=== PATIENT | male | born 1990 | race Caucasian/White ===

== ENCOUNTER 2017-08-12 10:06 | Day surgery (SDC) | payer OTHER, SELFPAY ==
[2017-08-06 11:47] VITALS: BMI 24.4
[2017-08-12] VITALS (11 sets, daily range): BP systolic 116–129; BP diastolic 67–80; PULSE 68–111; RESP 10–17; TEMP 36.1–36.8; O2SAT 94–100; BMI 24.0
--- NOTE | 2017-08-12 07:25 | PM.PREOP ---
Pre-operative Note Interval Note Pre-op Check: History & Physical Reviewed by Physician
[2017-08-12] MEDS: LACTATED RINGERS 1,000 ML 42 ML IV ×2 (10:45→13:05)
[2017-08-12] MEDS: CEFAZOLIN 2 GM/100 ML FROZ.PIGGY IV (11:11)
[2017-08-12] MEDS: SODIUM CHLORIDE IRRIG SOLUTION 3,000 ML, EPINEPHrine 1 MG IRR (12:22)
[2017-08-12] MEDS: fentaNYL 100 MCG/2 ML INJ 50 MCG IV ×2 (14:36→14:42)
[2017-08-12] MEDS: HYDROMORPHONE 2 MG INJ 0.5 MG IV ×3 (14:38→14:52)
--- NOTE | 2017-08-12 14:42 | PM.OP.1 ---
Operative Date/Time/Diagnoses - Date of procedure: 08/12/17 Time of procedure: 11:43 Pre-op diagnosis: Left anterior cruciate ligament tear Post-op diagnosis: same Procedure & Clinicians Procedure: Left anterior cruciate ligament reconstruction with patellar tendon autograft Same procedure as scheduled: Yes Indications: 27-year-old male who sustained an isolated left ACL tear on the 27 of April. He did rehabilitation significantly to gain full range of motion and improve his quadriceps function prior to surgery. He reported instability with daily activities and inability to play cutting sports which he desires to do. The risks benefits and alternatives to the surgery were discussed with them the risks include pain bleeding infection lack of symptom relief need for further procedures implant complications graft complications stiffness arthrofibrosis and anesthesia complications. He signed a consent form. After discussion with him he opted for a patellar tendon autograft. Surgeon: Walt Berman Click Yes if Unassisted: Yes Anesthesia Type: General Operative Notes Findings: Examination under anesthesia: Range of motion is a few degrees of hyperextension to 140? of flexion. Adelso's was to be pivot-shift is abnormal anterior drawer is abnormal. Posterior drawer was normal. Dial was normal at 30 and 90?. He was stable to varus and valgus stress at 0 and 30?. Diagnostic arthroscopy Patellofemoral joint: No loose bodies. Patella cartilage intact. Trochlear cartilage intact. Gutters: No loose bodies Medial rebekah joint: medial meniscus intact. Medial tibial plateau intact. Medial femoral condyle intact. Lateral hemijoint: Lateral meniscus intact. Lateral tibial plateau intact. Lateral femoral condyle intact Notch: ACL torn with cyclops lesion. A portion of the ACL had scarred to the PCL. PCL was intact. Closure Type: primary Specimen(s): none sent Implants & Drains: Arthrex ACL bone patellar tendon bone tightrope Arthrex 9 x 25 mm titanium screw Estimated Blood Loss (mL): 25 Blood products transfused: none Tourniquet time (min): 120 Procedure in detail: The patient was met in the preoperative hold area the day of the surgery and the operative extremity was signed. Consent was verified. All questions were answered. He desired to proceed. He was brought to the operating room and surrendered anesthesia. Once general anesthesia been obtained he was placed in the supine position all bony prominences were well padded. An examination under anesthesia was performed and the findings can be found above. He was then prepped and draped in the standard sterile fashion. A surgical time-out was held and we confirm the patient identity procedure allergies antibiotics images all were in agreement we proceeded. An Esmarch was used to exsanguinate the limb and the tourniquet was elevated 250 mm of mercury. An incision was made just midline to center overlying the distal pole of the patella down to the tibial tubercle. Sharp dissection was brought down through the bursa into the paratenon. Full-thickness flaps were created with Metzenbaum scissors. I made a midline incision in the paratenon on and lifted from the patellar tendon. The patellar tendon measured 30 mm across and the central 10 mm were marked with a Bovie. A 25 mm block was measured off the patella and a 30 mm block was measured off of the tibia. I used a 2 mm drill and drilled 10 mm down into the patella and the tibial tubercle corners of the bone blocks. I then used a sagittal saw created a triangular shaped patellar bone block and trapezoidal tibial bone blocks. A curved osteotome was used to complete the harvest at the proximal and distal sites and the bone block was delivered from the wound. The fat pad was sharply excised off of the back of the tendon. The graft was brought to the back table and excess bone was removed. The patellar bone block measured 9.5 by 23 mm. The tibial bone block measured 10 by 30 mm. I then drilled 1 hole a to P on the leading edge of the patellar bone block and 2 holes in the tibial bone block. Passing sutures were placed into the tibial bone block and the BTB tight rope was placed through the patellar bone block. It was then wrapped in a moist gauze A standard diagnostic arthroscopy was then performed through the previously placed incision utilizing anterolateral and anteromedial portal sites. The findings of the diagnostic arthroscopy can be found above. I then utilized a sucker shaver and a radiofrequency ablation Wand to remove all remnant ACL tissue from the notch. I placed the camera into the medial portal and looked all the way back and found that I had cleared all tissue off the lateral wall. Satisfied with this the femoral guide was brought in through the lateral portal and placed to leave a 2 mm back wall. Satisfied with my position I then made an incision over the lateral distal femur and brought the bullet down through the ITB band incision to the lateral femoral wall. I then drilled a size 10 flip cutter into the joint and it entered into the guide centrally. The guide was then removed and the flip cutter was flipped and the lateral wall was scored. Satisfied with the position I then drilled a 25 mm tunnel. The flip cutter was brought back into the joint to remove all bone fragments and the sucker shaver was used to suck bone fragments from the joint. A suture was then passed down through the lateral femur and snaps to itself. I then brought in the tibial guide and measured the tibial tunnel length to be 45 mm. The tibial guide pin was placed in line with the posterior border of the anterior horn of the lateral meniscus, 7 mm anterior to the PCL, on the lateral aspect of the medial tibial eminence. I straightened the knee and found that the pin would not impinge on the notch. Satisfied with the positioning of the pin I then grabbed it with a Yesi, and drilled a 10 mm tunnel. Debris was again removed from the borders of the tunnels and from the joint in general. I then assessed the tibial tunnel on the anterior cortex of the tibia and removed soft tissue from its border. I then passed the sutures down through the tunnel. The graft was then brought to the operating table and the sutures were passed I then pulled the button out of the lateral wall and the skin. I grasped the femoral bone block within the notch and pushed it to be in line with the femoral tunnel I then passed it into the tunnel easily with the button still out of the skin. I then used a Josseline rake to retract the ITB band and advanced the button down to the lateral femoral wall visualizing it on the wall. Satisfied with its position I then placed a large bump under the distal femur and put a posterior drawer on the proximal tibia. I assessed that there was 1 cm of graft tunnel mismatch. I therefore used a Yesi and spun the tibial block counter-clockwise for 2 full rotations and found that it brought the graft tunnel mismatch down to 3 mm. Satisfied with this I placed the Nitinol wire and while pulling tension on the graft and applying a posterior drawer I placed a 9 mm x 25 mm tibial screw which had excellent purchase. I then performed examination found Adelso's to be normal 1A with a negative pivot shift. I then used a rongeur to trim the excess tibial bone block. I then irrigated the wounds copiously. I then pulled on the tight rope sutures again and tied a knot with 6 half hitches alternating posts. The sutures were then cut under the ITB band. All bone chips that had been removed when contouring the bone blocks were then placed into the patellar defect and this was covered with dBX putty. I then placed the ABX putty into the tibial defect as well. The paratenon was then closed with 0 Vicryl in a running fashion. 0 Vicryl was used in the fat layer. Two 0 Vicryl and the skin and a running Monocryl in the anterior incision. Nylon was placed in the lateral incision. Sterile dressings were then applied and a [id number] brace was placed. He was awakened and transferred to the recovery room. Complications: none Condition: stable Disposition: same day surgery Plan for aftercare: Brace locked in full extension for 2 weeks. Physical therapy can do range of motion, quad sets, and patellar mobility exercises. Brace will be unlocked but worn until 6 weeks. The physical therapy protocol will be followed closely. I anticipate running in a straight line at 4 months, dynamic activities at 6 months, and full competition and 9 months. These goals will be monitored and advanced by physical therapy.
[2017-08-12] MEDS: OXYCODONE/ACETAMINOPHEN 5/325 TABLET 1 TAB PO (15:03)
--- NOTE | 2017-08-12 15:30 | SUR.PHASEII ---
pt to opd from pacu at 1507, leg elevated , ice to surgical site , drowsy, at side
[2017-08-12] MEDS: ONDANSETRON 4 MG ODT PO (16:00)
--- NOTE | 2017-08-12 16:41 | SUR.PHASEII ---
pt co's of nausea. po med given at 1600,vss, leg elevated, ice to site , dressing DCI
--- NOTE | 2017-08-12 16:54 | SUR.PHASEII ---
pt states nausea is better and request to go home at 1620, patient dressed with assistance, transferred to w/c , dressing DCI, pain 04/10,
== END 2017-08-12 16:30 | disposition home or self-care (01) ==
PROVIDERS: Visit Provider Orthopaedic Surgery
PROC: (CPT 29888; principal; 2017-08-12 11:45)
PROC: (CPT 29870; 2017-08-12 11:45)
DX: S83.512A Sprain of anterior cruciate ligament of left knee, initial encounter (principal)
CPT/HCPCS: 29888; J0171; J0690; J1100; J1170; J2405; J2704; J3010

== ENCOUNTER 2018-03-05 08:14 | Emergency (ER) | payer OTHER, SELFPAY ==
[2018-03-05] VITALS (7 sets, daily range): BP systolic 106–132; BP diastolic 59–93; PULSE 76–112; RESP 15–20; TEMP 37.2; O2SAT 98–100; BMI 23.7
[2018-03-05] MEDS: ALBUTEROL 2.5 MG/3 ML NEB (ADULT) INH (08:32)
--- NOTE | 2018-03-05 09:24 | DI.RAD.S_ITS ---
PROCEDURE: XR CHEST 1V INDICATIONS: chest pain, hx dvt TECHNIQUE: One view of the chest was acquired. COMPARISON: None. FINDINGS: Surgical changes and devices: None. Lungs and pleura: No pleural effusions or pneumothorax. Lungs are clear. Mediastinum: Mediastinal contours appear normal. Heart size is normal. Bones and chest wall: No suspicious bony lesions. Overlying soft tissues appear unremarkable. IMPRESSION: No acute cardiopulmonary findings. Dictated by: Zarina Arreola M.D. on 03/05/2018 at 9:55 Approved by: Zarina Arreola M.D. on 03/05/2018 at 9:55
--- NOTE | 2018-03-05 09:26 | ED.SOB ---
HPI - SOB/Dyspnea General Chief Complaint: Shortness of Breath/Dyspnea Stated Complaint: states shortness of breath, pain with deep breathi Time Seen by Provider: 03/05/18 09:07 Source: patient Mode of arrival: ambulatory Limitations: no limitations History of Present Illness This is a 27-year-old male comes to the emergency department with complaint of chest pain is states it started yesterday. He was not doing anything particular came on kind of suddenly. Patient states that he has any fevers, no cold cough or congestion. He has felt a little short of breath but not regularly. He states that gets chest pain when he tries to go up stairs or exert himself. Patient states it has been constant since last night it has not gone away. Nothing else seems to make it worse or better other than exertion. Patient has not had any syncope. He denies any other medical history other than having a DVT after ACL repair in April. He states he did about 6 months of blood thinners but is no longer taking them. He denies any family history of clots, cardiac pulmonary history. Patient did have a vasectomy in the last couple weeks. 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 Related Data Home Medications Medication Instructions Recorded Confirmed propranolol 20 mg PO BID PRN 08/06/17 03/05/18 Allergies Allergy/AdvReac Type Severity Reaction Status Date / Time caffeine Allergy Unknown Hives Verified 03/05/18 08:36 Review of Systems Review of Systems All systems reviewed & are unremarkable except as noted in HPI and below Constitutional Denies chills, Denies fever(s), Denies lethargy and Denies weakness Cardiovascular Reports chest pain, Denies chest pain at rest, Reports chest pain with activity, Denies diaphoresis, Denies syncope, Denies rapid heart rate, Denies edema, Denies irregular heart rhythm, Denies lightheadedness, Reports palpitations (not fast, but bounding. ), Reports dyspnea and Denies orthopnea Respiratory Denies change in phlegm color, Denies chest congestion, Denies cough, Denies hemoptysis, Denies pain on inspiration, Reports dyspnea, Denies stridor and Denies wheezing Gastrointestinal Gastrointestinal: Denies abdominal pain, Denies change in bowel habits, Denies diarrhea, Denies nausea and Denies vomiting Genitourinary Denies difficulty urinating, Denies urinary frequency, Denies urinary hesitancy and Denies urinary urgency Neurologic Denies syncope and Denies weakness Endocrine Reports palpitations (not fast, but bounding. ) Allergic/Immunologic Denies wheezing [facility] Medical History DVT (deep venous thrombosis) (Acute) Migraines (Acute) Surgical History S/P ACL repair (Acute) No history of previous surgery (Acute) Social History household members: spouse and children Smoking Status: Never smoker alcohol intake: never Exam Narrative Exam Narrative: GENERAL: Alert and oriented x three, well-nourished, well-appearing male in mild distress. HEENT: Head normocephalic, atraumatic, EOMI, pupils reactive, face symmetric, moist mucous membranes NECK: Supple, full range of motion CARDIOVASCULAR: Mild tachycardia, regular rate and rhythm without murmurs, rubs or gallops. RESPIRATORY: Breath sounds equal bilaterally, no wheezes rales or rhonchi. ABDOMEN: Soft, nontender. Normoactive bowel sounds all 4 quadrants. No guarding or rebound, rigidity, no mass : No CVA tenderness EXTREMITIES: Normal range of motion, no clubbing or edema. Neurovascularly intact NEUROLOGICAL: Cranial nerves II through XII grossly intact. Moving all extremities SKIN: Warm, dry, no petechiae, no rashes or lesions. Initial Vital Signs Initial Vital Signs: Vital Signs Temperature 99.0 F 03/05/18 08:15 Pulse Rate 112 H 03/05/18 08:15 Respiratory Rate 20 03/05/18 08:15 Blood Pressure 132/74 03/05/18 08:15 Pulse Oximetry 99 03/05/18 08:15 Scores HEART Score Heart Score history: Moderately Suspicious Heart Score EKG: Normal Heart Score Age: < 45 years old Heart Score risk factors: No known risk factors Heart Score troponin: < or = to normal limit Heart Score Total: 1 Course Orders Ordered: Discontinued Medications Albuterol (Ventolin) 2.5 mg INH NOW ONE Stop: 03/05/18 08:32 Last Admin: 03/05/18 08:32 Dose: 2.5 mg Aspirin (Aspirin Chew) 324 mg PO NOW ONE Stop: 03/05/18 09:25 Last Admin: 03/05/18 09:45 Dose: 324 mg Nitroglycerin (Nitrostat) 0.4 mg SL [id number] PRN PRN Reason: Chest Pain Last Admin: 03/05/18 09:47 Dose: 0.4 mg Vital Signs - 8 hr 03/05/18 11:19 Pulse Rate 91 H Respiratory Rate 18 Blood Pressure 106/59 L Pulse Oximetry 98 MDM - SOB/Dyspnea Lab Data Attestation: I reviewed the patient's lab results. Result diagrams: 03/05/18 09:35 03/05/18 09:35 Lab Results 03/05/18 03/05/18 03/05/18 Range/Units 09:35 09:35 09:35 WBC 6.4 (4.5-11.0) X10^3/uL RBC 4.98 (4.5-5.9) X10^6/uL Hgb 15.5 (13.5-17.5) g/dL Hct 44.9 (41-53) % MCV 90.3 (80-100) fL MCH 31.1 (26-34) PG MCHC 34.5 (30-36) % RDW 13.2 (11.6-14.8) % Plt Count 164 (150-400) X10^3/uL Neut % (Auto) 68.1 (50-75) % Lymph % (Auto) 15.3 L (25-40) % [place] % (Auto) 15.9 H (3-14) % Eos % (Auto) 0.2 L (2-4) % Baso % (Auto) 0.5 (0-2) % Neut # (Auto) 4300 (6462-9274) /uL PT 15.1 H (10.1-12.7) SECONDS INR 1.3 (0.9-1.3) APTT 30 (26.4-36.2) SECONDS Sodium 140 (137-145) mmol/L Potassium 3.6 (3.4-5.1) mmol/L Chloride 103 (98-107) mmol/L Carbon Dioxide 26 (22-32) mmol/L BUN 13 (9-20) mg/dL Creatinine 0.90 (0.66-1.25) mg/dL Estimated GFR > 60.0 (>60) mL/min BUN/Creatinine Ratio 14.4 (6-22) Glucose 122 H (70-100) mg/dL Calcium 9.4 (8.4-10.2) mg/dL Total Bilirubin 0.6 (0.2-1.3) mg/dL AST 18 (17-59) IU/L ALT 21 (21-72) IU/L Alkaline Phosphatase 73 (38-126) U/L Total Creatine Kinase 52 L (55-170) U/L CK-MB (CK-2) TNP CK-MB (CK-2) Rel Index TNP Troponin I < 0.012 (0.01-0.034) ng/mL Total Protein 7.6 (6.3-8.2) g/dL Albumin 4.5 (3.5-5.0) g/dL Globulin 3.1 (1.7-4.1) g/dL Albumin/Globulin Ratio 1.5 (1.0-2.8) Lipase 36 (23-300) U/L Urine RBC (0-5/HPF) Urine WBC (0-5/HPF) Urine Bacteria (None) Ur Culture Indicated? Micro UA Comment 03/05/18 Range/Units 10:00 WBC (4.5-11.0) X10^3/uL RBC (4.5-5.9) X10^6/uL Hgb (13.5-17.5) g/dL Hct (41-53) % MCV (80-100) fL MCH (26-34) PG MCHC (30-36) % RDW (11.6-14.8) % Plt Count (150-400) X10^3/uL Neut % (Auto) (50-75) % Lymph % (Auto) (25-40) % [place] % (Auto) (3-14) % Eos % (Auto) (2-4) % Baso % (Auto) (0-2) % Neut # (Auto) (0742-5011) /uL PT (10.1-12.7) SECONDS INR (0.9-1.3) APTT (26.4-36.2) SECONDS Sodium (137-145) mmol/L Potassium (3.4-5.1) mmol/L Chloride (98-107) mmol/L Carbon Dioxide (22-32) mmol/L BUN (9-20) mg/dL Creatinine (0.66-1.25) mg/dL Estimated GFR (>60) mL/min BUN/Creatinine Ratio (6-22) Glucose (70-100) mg/dL Calcium (8.4-10.2) mg/dL Total Bilirubin (0.2-1.3) mg/dL AST (17-59) IU/L ALT (21-72) IU/L Alkaline Phosphatase (38-126) U/L Total Creatine Kinase (55-170) U/L CK-MB (CK-2) CK-MB (CK-2) Rel Index Troponin I (0.01-0.034) ng/mL Total Protein (6.3-8.2) g/dL Albumin (3.5-5.0) g/dL Globulin (1.7-4.1) g/dL Albumin/Globulin Ratio (1.0-2.8) Lipase (23-300) U/L Urine RBC None seen (0-5/HPF) Urine WBC None seen (0-5/HPF) Urine Bacteria None seen (None) Ur Culture Indicated? Not Reportable Micro UA Comment Not Reportable Urine Dip Bedside Urine Glucose Negative Bedside Urine Bilirubin - Negative Bedside Urine Ketone - Negative Urine Specific [place] 1.010 Bedside Urine Occult Blood +/- Bedside Urine pH 6.0 Bedside Urine Protein - Negative Bedside Urine Urobilinogen - Negative Bedside Urine Nitrite - Negative Bedside Urine Leukocytes - Negative Esterase Imaging Data CTA PE protocol: Radiologist's impression: [address] [address] [address] Scan Report Signed Patient: Miah Osorio MR#: [id number] : 1990 Acct:[id number] Age/Sex: 27 / M Date of Service: 03/05/18 Loc: ED Accession Number: [id number] Procedure: CT angio chest PE protocol Ordering Provider: Anat Gallegos D.O. PROCEDURE: CT ANGIO CHEST PE PROTOCOL INDICATIONS: chest pain, hx dvt TECHNIQUE: After the administration of intravenous contrast, 2 mm thick sections acquired from the pulmonary apices to the posterior costophrenic angles. 3-dimensional maximum intensity projection (MIP) coronal and sagittal reformats were then acquired through the thorax. For radiation dose reduction, the following was used: automated exposure control, adjustment of mA and/or kV according to patient size. COMPARISON: None. FINDINGS: Image quality: Excellent. Pulmonary arteries: Please note, there is suboptimal opacification of the pulmonary arteries for evaluation of the subsegmental branches. However, the pulmonary arteries are normal in size, and demonstrate there are no central intraluminal filling defects to suggest saddle embolus. Lungs and pleura: Lungs are clear. No pleural effusions or pneumothorax. Central and peripheral airways are patent. Mediastinum: Heart size is normal, without pericardial effusion. No mediastinal or hilar adenopathy. Thoracic aorta is normal in caliber and enhancement. Esophagus is normal in caliber, without hiatal hernia. Bones and chest wall: No suspicious bony lesions. Ribs and thoracic spine appear intact throughout. Thyroid gland is unremarkable. No axillary or supraclavicular adenopathy. Abdomen: Visualized upper abdominal solid organs appear normal in the early arterial phase of enhancement. IMPRESSION: 1. Suboptimal opacification of the pulmonary arteries; however no findings to suggest central or subsegmental embolus. Dictated by: Zarina Arreola M.D. on 03/05/2018 at 10:19 Approved by: Zarina Arreola M.D. on 03/05/2018 at 10:22 ECG Data Attestation: I personally reviewed and interpreted this ECG as follows: Interpretation: Sinus rhythm with a ventricular rate of 92 ER interval of 143 QRS of 88 and QTC of 379. No ST elevation or depression is appreciated. MDM Narrative Medical decision making narrative: This is a 27-year-old male comes to the emergency department with complaint of chest pain. It is worse with exertion. He does not have any cardiac history but is slightly tachycardic when he comes in. He does have history of a DVT that occurred after an ACL repair in April of 2017. He was on about 6 months of blood thinners but is no longer. He is not particularly short of breath but is having some occasionally. Discussed with patient I think it would be prudent to evaluate for pulmonary embolism as well as cardiac evaluation, he has no clear infectious causes. Patient's lab work shows no acute changes, patient's chest x-ray and CT are negative for pulmonary embolism, pneumonia or other intrathoracic causes of pain. Patient's EKG is normal and with 12 hr of chest pain my suspicion for acute coronary syndrome is much lower. Patient has not had any fevers, he does not have any other symptoms really consistent with pericarditis or EKG changes consistent with a pericarditis. I discussed with patient plan for follow-up with primary care in the next 48 hr. Asked to return if worsening symptoms. Discharge Plan Departure Patient Disposition: Home Clinical Impression: Chest pain Discharge Date/Time: 03/05/18 11:19 Interventions: ED Discharge Assessment Last Done: 03/05/18 11:19 Instructions: DI for Chest Pain Activity Restrictions/Additional Instructions: Follow up with primary care the next 48-72 hours for recheck and further evaluation. Your physician may discuss a possible stress test after further evaluation versus other testing. You may continue home medications as prescribed. Take an aspirin 81 mg once daily until cleared by her primary care. Return to the emergency department for worsening symptoms, passing out, increasing chest pain, shortness of breath, diaphoresis or sweatiness, nausea, swelling of her lower extremities or other new or concerning symptoms. Prescriptions: No Action propranolol 10 mg Tablet 20 mg PO BID PRN (Reason: Migraine Headache) RF: 0
--- NOTE | 2018-03-05 09:29 | ED_ITS ---
HPI - SOB/Dyspnea General Chief Complaint: Shortness of Breath/Dyspnea Stated Complaint: states shortness of breath, pain with deep breathi Time Seen by Provider: 03/05/18 09:07 Source: patient Mode of arrival: ambulatory Limitations: no limitations History of Present Illness This is a 27-year-old male comes to the emergency department with complaint of chest pain is states it started yesterday. He was not doing anything particular came on kind of suddenly. Patient states that he has any fevers, no cold cough or congestion. He has felt a little short of breath but not regularly. He states that gets chest pain when he tries to go up stairs or exert himself. Patient states it has been constant since last night it has not gone away. Nothing else seems to make it worse or better other than exertion. Patient has not had any syncope. He denies any other medical history other than having a DVT after ACL repair in April. He states he did about 6 months of blood thinners but is no longer taking them. He denies any family history of clots, cardiac pulmonary history. Patient did have a vasectomy in the last couple weeks. 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 Related Data Home Medications Medication Instructions Recorded Confirmed propranolol 20 mg PO BID PRN 08/06/17 03/05/18 Allergies Allergy/AdvReac Type Severity Reaction Status Date / Time caffeine Allergy Unknown Hives Verified 03/05/18 08:36 Review of Systems Review of Systems All systems reviewed & are unremarkable except as noted in HPI and below Constitutional Denies chills, Denies fever(s), Denies lethargy and Denies weakness Cardiovascular Reports chest pain, Denies chest pain at rest, Reports chest pain with activity , Denies diaphoresis, Denies syncope, Denies rapid heart rate, Denies edema, Denies irregular heart rhythm, Denies lightheadedness, Reports palpitations ( not fast, but bounding. ), Reports dyspnea and Denies orthopnea Respiratory Denies change in phlegm color, Denies chest congestion, Denies cough, Denies hemoptysis, Denies pain on inspiration, Reports dyspnea, Denies stridor and Denies wheezing Gastrointestinal Gastrointestinal: Denies abdominal pain, Denies change in bowel habits, Denies diarrhea, Denies nausea and Denies vomiting Genitourinary Denies difficulty urinating, Denies urinary frequency, Denies urinary hesitancy and Denies urinary urgency Neurologic Denies syncope and Denies weakness Endocrine Reports palpitations (not fast, but bounding. ) Allergic/Immunologic Denies wheezing FOR[facility]LY [facility] Medical History DVT (deep venous thrombosis) (Acute) Migraines (Acute) Surgical History S/P ACL repair (Acute) No history of previous surgery (Acute) Social History household members: spouse and children Smoking Status: Never smoker alcohol intake: never Exam Narrative Exam Narrative: GENERAL: Alert and oriented x three, well-nourished, well- appearing male in mild distress. HEENT: Head normocephalic, atraumatic, EOMI, pupils reactive, face symmetric, moist mucous membranes NECK: Supple, full range of motion CARDIOVASCULAR: Mild tachycardia, regular rate and rhythm without murmurs, rubs or gallops. RESPIRATORY: Breath sounds equal bilaterally, no wheezes rales or rhonchi. ABDOMEN: Soft, nontender. Normoactive bowel sounds all 4 quadrants. No guarding or rebound, rigidity, no mass : No CVA tenderness EXTREMITIES: Normal range of motion, no clubbing or edema. Neurovascularly intact NEUROLOGICAL: Cranial nerves II through XII grossly intact. Moving all extremities SKIN: Warm, dry, no petechiae, no rashes or lesions. Initial Vital Signs Initial Vital Signs: Vital Signs Temperature 99.0 F 03/05/18 08:15 Pulse Rate 112 H 03/05/18 08:15 Respiratory Rate 20 03/05/18 08:15 Blood Pressure 132/74 03/05/18 08:15 Pulse Oximetry 99 03/05/18 08:15 Scores HEART Score Heart Score history: Moderately Suspicious Heart Score EKG: Normal Heart Score Age: < 45 years old Heart Score risk factors: No known risk factors Heart Score troponin: < or = to normal limit Heart Score Total: 1 Course Orders Ordered: Discontinued Medications Albuterol (Ventolin) 2.5 mg INH NOW ONE Stop: 03/05/18 08:32 Last Admin: 03/05/18 08:32 Dose: 2.5 mg Aspirin (Aspirin Chew) 324 mg PO NOW ONE Stop: 03/05/18 09:25 Last Admin: 03/05/18 09:45 Dose: 324 mg Nitroglycerin (Nitrostat) 0.4 mg SL [id number] PRN PRN Reason: Chest Pain Last Admin: 03/05/18 09:47 Dose: 0.4 mg Vital Signs - 8 hr 03/05/18 11:19 Pulse Rate 91 H Respiratory Rate 18 Blood Pressure 106/59 L Pulse Oximetry 98 MDM - SOB/Dyspnea Lab Data Attestation: I reviewed the patient's lab results. Result diagrams: 03/05/18 09:35 03/05/18 09:35 Lab Results 03/05/18 03/05/18 03/05/18 Range/Units 09:35 09:35 09:35 WBC 6.4 (4.5-11.0) X10^3/uL RBC 4.98 (4.5-5.9) X10^6/uL Hgb 15.5 (13.5-17.5) g/dL Hct 44.9 (41-53) % MCV 90.3 (80-100) fL MCH 31.1 (26-34) PG MCHC 34.5 (30-36) % RDW 13.2 (11.6-14.8) % Plt Count 164 (150-400) X10^3/uL Neut % (Auto) 68.1 (50-75) % Lymph % (Auto) 15.3 L (25-40) % [place] % (Auto) 15.9 H (3-14) % Eos % (Auto) 0.2 L (2-4) % Baso % (Auto) 0.5 (0-2) % Neut # (Auto) 4300 (4111-5223) /uL PT 15.1 H (10.1-12.7) SECONDS INR 1.3 (0.9-1.3) APTT 30 (26.4-36.2) SECONDS Sodium 140 (137-145) mmol/L Potassium 3.6 (3.4-5.1) mmol/L Chloride 103 (98-107) mmol/L Carbon Dioxide 26 (22-32) mmol/L BUN 13 (9-20) mg/dL Creatinine 0.90 (0.66-1.25) mg/dL Estimated GFR > 60.0 (>60) mL/min BUN/Creatinine Ratio 14.4 (6-22) Glucose 122 H (70-100) mg/dL Calcium 9.4 (8.4-10.2) mg/dL Total Bilirubin 0.6 (0.2-1.3) mg/dL AST 18 (17-59) IU/L ALT 21 (21-72) IU/L Alkaline Phosphatase 73 (38-126) U/L Total Creatine Kinase 52 L (55-170) U/L CK-MB (CK-2) TNP CK-MB (CK-2) Rel Index TNP Troponin I < 0.012 (0.01-0.034) ng/mL Total Protein 7.6 (6.3-8.2) g/dL Albumin 4.5 (3.5-5.0) g/dL Globulin 3.1 (1.7-4.1) g/dL Albumin/Globulin Ratio 1.5 (1.0-2.8) Lipase 36 (23-300) U/L Urine RBC (0-5/HPF) Urine WBC (0-5/HPF) Urine Bacteria (None) Ur Culture Indicated? Micro UA Comment 03/05/18 Range/Units 10:00 WBC (4.5-11.0) X10^3/uL RBC (4.5-5.9) X10^6/uL Hgb (13.5-17.5) g/dL Hct (41-53) % MCV (80-100) fL MCH (26-34) PG MCHC (30-36) % RDW (11.6-14.8) % Plt Count (150-400) X10^3/uL Neut % (Auto) (50-75) % Lymph % (Auto) (25-40) % [place] % (Auto) (3-14) % Eos % (Auto) (2-4) % Baso % (Auto) (0-2) % Neut # (Auto) (7486-3684) /uL PT (10.1-12.7) SECONDS INR (0.9-1.3) APTT (26.4-36.2) SECONDS Sodium (137-145) mmol/L Potassium (3.4-5.1) mmol/L Chloride (98-107) mmol/L Carbon Dioxide (22-32) mmol/L BUN (9-20) mg/dL Creatinine (0.66-1.25) mg/dL Estimated GFR (>60) mL/min BUN/Creatinine Ratio (6-22) Glucose (70-100) mg/dL Calcium (8.4-10.2) mg/dL Total Bilirubin (0.2-1.3) mg/dL AST (17-59) IU/L ALT (21-72) IU/L Alkaline Phosphatase (38-126) U/L Total Creatine Kinase (55-170) U/L CK-MB (CK-2) CK-MB (CK-2) Rel Index Troponin I (0.01-0.034) ng/mL Total Protein (6.3-8.2) g/dL Albumin (3.5-5.0) g/dL Globulin (1.7-4.1) g/dL Albumin/Globulin Ratio (1.0-2.8) Lipase (23-300) U/L Urine RBC None seen (0-5/HPF) Urine WBC None seen (0-5/HPF) Urine Bacteria None seen (None) Ur Culture Indicated? Not Reportable Micro UA Comment Not Reportable Urine Dip Bedside Urine Glucose Negative Bedside Urine Bilirubin - Negative Bedside Urine Ketone - Negative Urine Specific [place] 1.010 Bedside Urine Occult Blood +/- Bedside Urine pH 6.0 Bedside Urine Protein - Negative Bedside Urine Urobilinogen - Negative Bedside Urine Nitrite - Negative Bedside Urine Leukocytes - Negative Esterase Imaging Data CTA PE protocol: Radiologist's impression: [address] [address] [address] Scan Report Signed Patient: Miah Osorio MR#: [id number] : 1990 Acct:[id number] Age/Sex: 27 / M Date of Service: 03/05/18 Loc: ED Accession Number: [id number] Procedure: CT angio chest PE protocol Ordering Provider: Anat Gallegos D.O. PROCEDURE: CT ANGIO CHEST PE PROTOCOL INDICATIONS: chest pain, hx dvt TECHNIQUE: After the administration of intravenous contrast, 2 mm thick sections acquired from the pulmonary apices to the posterior costophrenic angles. 3-dimensional maximum intensity projection (MIP) coronal and sagittal reformats were then acquired through the thorax. For radiation dose reduction, the following was used: automated exposure control, adjustment of mA and/or kV according to patient size. COMPARISON: None. FINDINGS: Image quality: Excellent. Pulmonary arteries: Please note, there is suboptimal opacification of the pulmonary arteries for evaluation of the subsegmental branches. However, the pulmonary arteries are normal in size, and demonstrate there are no central intraluminal filling defects to suggest saddle embolus. Lungs and pleura: Lungs are clear. No pleural effusions or pneumothorax. Central and peripheral airways are patent. Mediastinum: Heart size is normal, without pericardial effusion. No mediastinal or hilar adenopathy. Thoracic aorta is normal in caliber and enhancement. Esophagus is normal in caliber, without hiatal hernia. Bones and chest wall: No suspicious bony lesions. Ribs and thoracic spine appear intact throughout. Thyroid gland is unremarkable. No axillary or supraclavicular adenopathy. Abdomen: Visualized upper abdominal solid organs appear normal in the early arterial phase of enhancement. IMPRESSION: 1. Suboptimal opacification of the pulmonary arteries; however no findings to suggest central or subsegmental embolus. Dictated by: Zarina Arreola M.D. on 03/05/2018 at 10:19 Approved by: Zarina Arerola M.D. on 03/05/2018 at 10:22 ECG Data Attestation: I personally reviewed and interpreted this ECG as follows: Interpretation: Sinus rhythm with a ventricular rate of 92 ER interval of 143 QRS of 88 and QTC of 379. No ST elevation or depression is appreciated. MDM Narrative Medical decision making narrative: This is a 27-year-old male comes to the emergency department with complaint of chest pain. It is worse with exertion. He does not have any cardiac history but is slightly tachycardic when he comes in. He does have history of a DVT that occurred after an ACL repair in April of 2017. He was on about 6 months of blood thinners but is no longer. He is not particularly short of breath but is having some occasionally. Discussed with patient I think it would be prudent to evaluate for pulmonary embolism as well as cardiac evaluation, he has no clear infectious causes. Patient's lab work shows no acute changes, patient's chest x-ray and CT are negative for pulmonary embolism, pneumonia or other intrathoracic causes of pain. Patient's EKG is normal and with 12 hr of chest pain my suspicion for acute coronary syndrome is much lower. Patient has not had any fevers, he does not have any other symptoms really consistent with pericarditis or EKG changes consistent with a pericarditis. I discussed with patient plan for follow-up with primary care in the next 48 hr. Asked to return if worsening symptoms. Discharge Plan Departure Patient Disposition: Home Clinical Impression: Chest pain Discharge Date/Time: 03/05/18 11:19 Interventions: ED Discharge Assessment Last Done: 03/05/18 11:19 Instructions: DI for Chest Pain Activity Restrictions/Additional Instructions: Follow up with primary care the next 48-72 hours for recheck and further evaluation. Your physician may discuss a possible stress test after further evaluation versus other testing. You may continue home medications as prescribed. Take an aspirin 81 mg once daily until cleared by her primary care. Return to the emergency department for worsening symptoms, passing out, increasing chest pain, shortness of breath, diaphoresis or sweatiness, nausea, swelling of her lower extremities or other new or concerning symptoms. Prescriptions: No Action propranolol 10 mg Tablet 20 mg PO BID PRN (Reason: Migraine Headache) RF: 0
[2018-03-05 09:43] LABS: Add Manual Diff / Slide Review NO; Basophils Percent Auto 0.5 % (0-2); Eosinophils Percent Auto 0.2 % (2-4); Hematocrit 44.9 % (41-53); Hemoglobin 15.5 g/dL (13.5-17.5); Lymphocytes Percent Auto 15.3 % (25-40); Mean Corpuscular HGB Conc 34.5 % (30-36); Mean Corpuscular Hemoglobin 31.1 PG (26-34); Mean Corpuscular Volume 90.3 fL (80-100); Monocytes Percent Auto 15.9 % (3-14); Neutrophils Absolute Auto 4300 /uL (1500-7000); Neutrophils Percent Auto 68.1 % (50-75); Platelet Count 164 X10^3/uL (150-400); Red Blood Cell Count 4.98 X10^6/uL (4.5-5.9); Red Cell Distribution Width 13.2 % (11.6-14.8); White Blood Cell Count 6.4 X10^3/uL (4.5-11.0)
[2018-03-05] MEDS: ASPIRIN 81 MG TAB 324 MG PO (09:45)
[2018-03-05] MEDS: NITROGLYCERIN 0.4 MG SL TAB SL (09:47)
[2018-03-05 09:57] LABS: INR 1.3 (0.9-1.3); Prothrombin Time 15.1 SECONDS (10.1-12.7)
[2018-03-05 10:00] LABS: PTT Partial Thromboplastin Tim 30 SECONDS (26.4-36.2)
[2018-03-05 10:01] LABS: Alanine Aminotransferase 21 IU/L (21-72); Albumin 4.5 g/dL (3.5-5.0); Albumin Globulin Ratio 1.5 (1.0-2.8); Alkaline Phosphatase 73 U/L (38-126); Aspartate Aminotransferase 18 IU/L (17-59); BUN Creatinine Ratio 14.4 (6-22); Bilirubin Total 0.6 mg/dL (0.2-1.3); Blood Urea Nitrogen 13 mg/dL (9-20); Calcium 9.4 mg/dL (8.4-10.2); Carbon Dioxide 26 mmol/L (22-32); Chloride 103 mmol/L (98-107); Creatine Kinase 52 U/L (55-170); Estimated Glomerular Filt Rate > 60.0 mL/min (>60); Globulin 3.1 g/dL (1.7-4.1); Glucose 122 mg/dL (70-100); HEMOLYSIS < 15 (0-50); Lipase 36 U/L (23-300); Potassium 3.6 mmol/L (3.4-5.1); Sodium 140 mmol/L (137-145); Total Protein 7.6 g/dL (6.3-8.2)
[2018-03-05 10:15] LABS: Troponin I < 0.012 ng/mL (0.01-0.034)
[2018-03-05 11:07] LABS: Bacteria Urine None Seen; RBC Urine None Seen (0-5/HPF); WBC Urine None Seen (0-5/HPF)
== END 2018-03-05 11:19 | disposition home or self-care (01) ==
PROVIDERS: Emergency Provider Emergency Medicine
DX: R07.9 Chest pain, unspecified (principal)
CPT/HCPCS: 36591; 71045; 71275; 80053; 81003; 81015; 82550; 83690; 84484; 85025; 85610; 85730; 93005; 93041; 94640; 99283; 99285; J7613; Q9967

== ENCOUNTER 2018-07-31 21:04 | Emergency (ER) | payer OTHER, SELFPAY ==
[2018-07-31 21:13] VITALS: BP 113/72; PULSE 66; RESP 15; TEMP 36.6; O2SAT 100; BMI 23.7
--- NOTE | 2018-07-31 21:18 | DI.US.S_ITS ---
PROCEDURE: US SCROTUM INDICATIONS: TESTICULAR PAIN AND SWELLING, NO INJURY TECHNIQUE: Real-time scanning was performed of the scrotum and testicles, with image documentation. Color and pulse Doppler interrogation was performed of both testicles. COMPARISON: None. FINDINGS: Right: Testicle is normal in size at 4.7 x 2.3 x 3.3 cm, and homogenous in echotexture. Epididymis is normal in overall size and morphology. No hydrocele or varicoceles. Overlying scrotal skin is normal in thickness. Left: Testicle is normal in size at 4.7 x 1.9 x 3.1 cm, and homogeneous in echotexture. Epididymis is normal in overall size and morphology. Subcentimeter epididymal cyst. No hydrocele or varicoceles. Overlying scrotal skin is normal in thickness. Several scrotal wall calcifications are noted. Doppler: Color and pulse Doppler demonstrate normal and symmetric arterial flow in both testicles. IMPRESSION: 1. Normal testicles bilaterally. 2. Subcentimeter right epididymal cyst. 3. Left scrotal wall calcifications. Note: These findings are concordant with the preliminary interpretation. Dictated by: Alexander BURNS Interpreted: Dannie Larios MD on 08/01/2018 at 8:10 Approved by: Dannie Larios M.D. on 08/01/2018 at 14:46
--- NOTE | 2018-07-31 21:18 | ED.MALEGU ---
HPI - Male Genitourinary General Chief complaint: Urogenital-Male Stated complaint: testicular pain Time Seen by Provider: 07/31/18 21:08 Source: patient and family Mode of arrival: ambulatory Limitations: no limitations History of Present Illness HPI Narrative: 28-year-old male nonsmoker, otherwise healthy presents with his in the chief complaint of left testicular pain which has been present for many months. Patient states that he has had a palpable bump on the left testicle which he thinks is larger today and had been. He called the nursing hotline and was instructed to come to the emergency department. He denies any dysuria, frequency or urgency. He denies any injury. MD Complaint: testicle pain Onset (ago): month(s) Duration: intermittent Location: left testicle Severity: moderate Quality: aching Relieving factors: none Exacerbating factors: palpation and movement Reports denies other symptoms Related Data Sexually active: Yes Home Medications Medication Instructions Recorded Confirmed propranolol 20 mg PO BID PRN 08/06/17 03/05/18 Allergies Allergy/AdvReac Type Severity Reaction Status Date / Time caffeine Allergy Unknown Hives Verified 03/05/18 08:36 Review of Systems Constitutional Denies chills, Denies fever(s), Denies lethargy and Denies weakness Eyes Denies change in vision, Denies eye discharge, Denies irritation and Denies loss of vision ENT Ears, Nose, Mouth, and Throat: Denies change in voice, Denies neck pain and Denies sore throat Cardiovascular Denies chest pain, Denies irregular heart rhythm, Denies lightheadedness, Denies palpitations, Denies dyspnea, Denies dyspnea on exertion and Denies orthopnea Respiratory Denies cough, Denies dyspnea, Denies dyspnea on exertion and Denies wheezing Gastrointestinal Gastrointestinal: Denies abdominal pain, Denies change in bowel habits, Denies diarrhea, Denies nausea and Denies vomiting Genitourinary Denies hematuria, Denies flank pain, Reports testicular mass, Reports testicular pain, Denies urinary incontinence and Denies urinary urgency Musculoskeletal Denies neck pain Integumentary/Breasts Denies pruritus, Denies erythema, Denies rash and Denies wounds Neurologic Denies confusion, Denies loss of vision and Denies weakness Psychiatric Denies anxiety, Denies confusion, Denies depression, Denies homicidal ideation and Denies suicidal ideation Endocrine Denies palpitations Hematologic/Lymphatic Denies easy bruising Allergic/Immunologic Denies wheezing PFSH Medical History DVT (deep venous thrombosis) (Acute) Migraines (Acute) Surgical History No history of previous surgery (Acute) S/P ACL repair (Acute) Social History household members: spouse and children Smoking Status: Never smoker alcohol intake: never Social History household members: spouse and children Smoking Status: Never smoker alcohol intake: never Exam Narrative Exam Narrative: GEN: AOx3 and in mild distress EYES: Pupils are equal, round, and reactive to light and accommodation. Extraoccular muscles are intact bilaterally. There is no subconjunctival hemorrhage or exudate. CHEST: Lungs are clear to auscultation bilaterally and free of wheezes, rales, or rhonchi. Heart rate is regular rhythm, there are no murmurs, clicks, rubs, or gallops. There is no chest wall tenderness. ABD: Abdomen is soft and nontender. There is no guarding or rebound. Bowel sounds are normal in all 4 quadrants. There is no mass or organomegaly. : L testicle painful to palp, small mass on L testicle palpated, which is tender. No swelling, erythema or warmth. No discoloration. No evidence of inguinal hernia. Examined in standing position EXT: Full painless ROM of all extremities with no loss of sensation or strength. SKIN: Warm, pink, and dry. No erythema or rash Initial Vital Signs Initial Vital Signs: Vital Signs Temperature 97.8 F 07/31/18 21:13 Pulse Rate 66 07/31/18 21:13 Respiratory Rate 15 07/31/18 21:13 Blood Pressure 113/72 07/31/18 21:13 Pulse Oximetry 100 07/31/18 21:13 Course Orders Ordered: ED Orders 07/31/18 21:18 US scrotum Stat Discontinued Medications Hydrocodone Bitart/Acetaminophen (Vicodin Prepack) 1 bottle MISC SEEINSTR ONE Stop: 07/31/18 23:02 Last Admin: 07/31/18 23:17 Dose: 1 bottle Vital Signs - 8 hr 07/31/18 21:13 Temperature 97.8 F Pulse Rate 66 Respiratory Rate 15 Blood Pressure 113/72 Pulse Oximetry 100 MDM - Male Genitourinary Lab Data Urine Dip Bedside Urine Glucose Negative Bedside Urine Bilirubin - Negative Bedside Urine Ketone - Negative Urine Specific [place] 1.030 Bedside Urine Occult Blood - Negative Bedside Urine pH 6.0 Bedside Urine Protein - Negative Bedside Urine Urobilinogen - Negative Bedside Urine Nitrite - Negative Bedside Urine Leukocytes - Negative Esterase Imaging Data Testicular US: Radiologist's impression: NO acute findings. No torsion MDM Narrative Medical decision making narrative: Multiple etiologies for patient's symptoms considered including: [torsion vs. Epididymitis versus other] Patient's symptoms improved or duration of stay with above-stated therapies. Findings and discharge diagnosis discussed with patient/family followed by verbalization of understanding Return precautions discussed with patient/family whom verbalize understanding. Discharge Plan Departure Patient Disposition: Home Clinical Impression: Left testicular pain Discharge Date/Time: 07/31/18 23:20 Interventions: ED Discharge Assessment Last Done: 07/31/18 23:20 Instructions: DI for Testicular Pain Activity Restrictions/Additional Instructions: *You have been diagnosed with [acute testicular pain] *What to do: *Take medications as directed *Follow up with your primary care provider in 2-3 days, call for an appointment. Let them know you were seen in the Emergency Department and that we ask that you be seen in follow up *Return to ER if you should have any new, worsening or concerning symptoms Prescriptions: No Action propranolol 10 mg Tablet 20 mg PO BID PRN (Reason: Migraine Headache) RF: 0 Referrals: Ludivina Denis MD [Non-Staff] -
[2018-07-31] MEDS: HYDROCODONE/ACET 5/325 PREPACK 1 BOTTLE MISC (23:17)
== END 2018-07-31 23:20 | disposition home or self-care (01) ==
PROVIDERS: Emergency Provider Emergency Medicine
DX: N50.812 Left testicular pain (principal)
CPT/HCPCS: 76870; 81003; 99282; 99283

== ENCOUNTER 2020-01-19 04:45 | Emergency (ER) | payer OTHER, SELFPAY ==
[2020-01-19] VITALS (13 sets, daily range): BP systolic 109–126; BP diastolic 58–70; PULSE 56–64; RESP 11–17; TEMP 37.2; O2SAT 97–100; BMI 23.7
--- NOTE | 2020-01-19 04:55 | DI.CT.S_ITS ---
PROCEDURE: CT HEAD/BRAIN WO CON INDICATIONS: Stroke vs. seizure, loss of recall, confusion TECHNIQUE: Noncontrast 4.5 mm thick angled axial sections acquired from the foramen magnum to the vertex, with coronal and sagittal reformats. For radiation dose reduction, the following was used: automated exposure control, adjustment of mA and/or kV according to patient size. COMPARISON: None. FINDINGS: Image quality: Excellent. CSF spaces: Basal cisterns are patent. No extra-axial fluid collections. Ventricles are normal in size and shape. Brain: No midline shift. No intracranial masses or hemorrhage. Nicohls-white matter interface is normal. Skull and face: Calvarium and visualized facial bones are intact, without suspicious lesions. Sinuses: Visualized sinuses and mastoids are clear. IMPRESSION: No acute intracranial disease process. Dictated by: Yudelka Carreon MD, PhD on 01/19/2020 at 7:13 Approved by: Yudelka Carreon MD, PhD on 01/19/2020 at 7:13
--- NOTE | 2020-01-19 04:55 | DI.CT.S_ITS ---
PROCEDURE: CT CERVICAL SPINE WO CON INDICATIONS: Stroke vs. seizure, now has midline neck pain after fall TECHNIQUE: Noncontrast 3 mm thick sections acquired from the skull base to the T4 level. Sagittal and coronal reformats were then constructed. For radiation dose reduction, the following was used: automated exposure control, adjustment of mA and/or kV according to patient size. COMPARISON: None. FINDINGS: Image quality: Excellent. Bones: No fractures or dislocations. Visualized superior ribs are intact. Soft tissues: Prevertebral soft tissues are normal in thickness. No paravertebral hematomas. No apical pneumothoraces. IMPRESSION: No fracture. No acute osseous lesion. If symptoms and/or clinical suspicion for pathology persists, evaluation with MRI may be helpful for further assessment. Dictated by: Yudelka Carreon MD, PhD on 01/19/2020 at 7:32 Approved by: Yudelka Carreon MD, PhD on 01/19/2020 at 7:34
[2020-01-19] MEDS: ONDANSETRON 4 MG/2 ML INJ IV (05:04)
[2020-01-19] MEDS: SODIUM CHLORIDE 0.9% 1,000 ML 1000 ML IV (05:04)
--- NOTE | 2020-01-19 05:04 | PC.NURSE ---
Pt states that he has started to feel weak on his R side. When roll grinder and foot strength assessed he did have a noticeable weakness on his R side. informed. Taking pt to CT
[2020-01-19 05:14] LABS: Add Manual Diff / Slide Review NO; Basophils Absolute Auto 100 /uL (0-100); Basophils Percent Auto 1.1 % (0-2); Eosinophils Absolute Auto 100 /uL (0-450); Eosinophils Percent Auto 2.4 % (2-4); Hematocrit 46.1 % (41-53); Lymphocytes Absolute Auto 1500 /uL (1100-4500); Lymphocytes Percent Auto 28.6 % (25-40); Mean Corpuscular HGB Conc 34.7 % (30-36); Mean Corpuscular Hemoglobin 31.2 PG (26-34); Mean Corpuscular Volume 89.9 fL (80-100); Monocytes Absolute Auto 600 /uL (0-900); Monocytes Percent Auto 11.2 % (3-14); Neutrophils Absolute Auto 2900 /uL (1500-7000); Neutrophils Percent Auto 56.7 % (50-75); Platelet Count 231 X10^3/uL (150-400); Red Blood Cell Count 5.13 X10^6/uL (4.5-5.9); Red Cell Distribution Width 12.8 % (11.6-14.8); White Blood Cell Count 5.1 X10^3/uL (4.5-11.0)
--- NOTE | 2020-01-19 05:15 | DI.CT.S_ITS ---
PROCEDURE: CT ANGIO HEAD AND NECK INDICATIONS: Stroke,altered mental status , fall, right arm weakness TECHNIQUE: Pre-contrast 4.5 mm thick sections acquired from the foramen magnum to the vertex. After the administration of intravenous contrast, 1 mm thick sections acquired from the aortic arch through the [place]. Post-contrast 4.5 mm thick sections then re-acquired from the foramen magnum to the vertex. 3-dimensional [id number]-[id number] (MIP) and/or volume rendering reformats were acquired of the central intracranial vasculature and neck separately. COMPARISON: [facility], CT, CT HEAD/BRAIN WO CON, 01/19/2020, 5:00. FINDINGS: Image quality: Excellent. BRAIN: CSF spaces: Ventricles are normal in size and shape. Basal cisterns are patent. No extra-axial fluid collections. Brain: No midline shift. No intracranial bleeds or masses. Nichols-white matter interface appears intact. Skull and face: Calvarium and facial bones appear intact, without suspicious lesions. Orbits appear normal. Sinuses: Small mucous retention cysts noted in the maxillary sinuses bilaterally. The mastoids are clear. HEAD CT ANGIOGRAPHY: Anterior circulation: Intracranial internal carotid arteries are normal in size and flow. The flow within the paired anterior cerebral arteries is normal and symmetric. The flow within the middle cerebral arteries is normal and symmetric. The anterior communicating artery is seen. No aneurysms are seen. Posterior circulation: Visualized portions of the vertebral arteries demonstrate normal caliber, and join to form a normal appearing basilar artery. Flow within the posterior cerebral arteries is normal and symmetric. No aneurysms are seen. Dural sinuses demonstrate normal postcontrast enhancement. NECK CT ANGIOGRAPHY: Carotid system: The great vessels demonstrate a conventional anatomy as they arise from the aortic arch. The origins of the common carotid arteries appear patent. The common carotid arteries demonstrate normal caliber and courses. The bifurcation regions are both widely patent. The internal carotid arteries demonstrate normal calibers and courses. Posterior circulation: The origins of the vertebral arteries both appear widely patent. The more superior extracranial portions of both vertebral arteries also demonstrate normal courses and calibers. They join to form a normal appearing basilar artery. Soft tissues: Visualized neck soft tissues demonstrate no suspicious abnormalities. Bones: No suspicious bony lesions. Visualized cervical spine appears normally aligned. IMPRESSION: 1. No acute intracranial disease process. 2. No large vessel occlusion, vascular stenosis, vascular dissection or aneurysm. Any quantitative measurements of stenosis were performed using NASCET criteria. Dictated by: Yudelka Carreon MD, PhD on 01/19/2020 at 7:35 Approved by: Yudelka Carreon MD, PhD on 01/19/2020 at 7:41
[2020-01-19 05:24] LABS: Alanine Aminotransferase 18 IU/L (<50); Albumin 4.4 g/dL (3.5-5.0); Albumin Globulin Ratio 1.3 (1.0-2.8); Alkaline Phosphatase 76 U/L (38-126); Aspartate Aminotransferase 21 IU/L (17-59); BUN Creatinine Ratio 15.8 (6-22); Bilirubin Total 1.3 mg/dL (0.2-1.3); Blood Urea Nitrogen 15 mg/dL (9-20); Calcium 9.6 mg/dL (8.4-10.2); Carbon Dioxide 25 mmol/L (22-32); Chloride 105 mmol/L (98-107); Estimated Glomerular Filt Rate > 60.0 mL/min (>60); Globulin 3.4 g/dL (1.7-4.1); Glucose 107 mg/dL (70-100); HEMOLYSIS 15 (0-50); Magnesium 2.1 mg/dL (1.6-2.3); Potassium 3.6 mmol/L (3.4-5.1); Sodium 136 mmol/L (137-145); Total Protein 7.8 g/dL (6.3-8.2)
[2020-01-19 05:53] LABS: Prolactin 18.3 ng/mL (3.7-17.9)
--- NOTE | 2020-01-19 06:12 | ED.FALL ---
HPI - Fall <Miles Stout DO - Last Filed: 01/19/20 17:54> General Chief Complaint: Fall Stated Complaint: Amnesia and incontinence Time Seen by Provider: 01/19/20 04:45 Source: patient, family and EMS Mode of arrival: EMS Limitations: no limitations History of Present Illness HPI Narrative: 29-year-old nonsmoking male with history of traumatic brain injury presents with a chief complaint of some headache, confusion, lack of recall of events this morning and neck pain. Patient went to bed in his normal state of health. He do admittedly has been working longer hours and is under increased stress at work. His was sleeping and their daughter's room and heard him calling out for her this morning, she found him in the doorjamb of the room stating that he did know what had happened and found himself on the floor next to the bed. He had lost control of his bladder. MD complaint: other Onset (ago): minute(s) Fall from: out of bed Fall witnessed: no Place fall occurred: home Loss of consciousness: unsure Prolonged down time: no Symptoms prior to fall: none Location of injury: neck Severity: moderate Associated symptoms (after fall): neck pain, lightheaded and confusion Related Data Home Medications Medication Instructions Recorded Confirmed propranolol 20 mg PO BID PRN 08/06/17 03/05/18 Allergies Allergy/AdvReac Type Severity Reaction Status Date / Time caffeine Allergy Unknown Hives Verified 03/05/18 08:36 Review of Systems <Miles Stout DO - Last Filed: 01/19/20 17:54> Constitutional Constitutional: Denies chills, Denies fatigue, Denies fever(s), Denies frequent falls, Denies lethargy and Denies weakness Eyes Eyes: Denies change in vision, Denies eye discharge, Denies irritation and Denies loss of vision ENT Ears, Nose, Mouth, and Throat: Denies change in voice, Reports dizziness, Denies neck pain, Denies sore throat and Denies throat swelling Cardiovascular Cardiovascular: Denies chest pain, Denies irregular heart rhythm, Denies lightheadedness, Denies palpitations, Denies dyspnea, Denies dyspnea on exertion and Denies orthopnea Respiratory Respiratory: Denies cough, Denies dyspnea, Denies dyspnea on exertion and Denies wheezing Gastrointestinal Gastrointestinal: Denies abdominal pain, Denies change in bowel habits, Denies diarrhea, Denies nausea and Denies vomiting Musculoskeletal Musculoskeletal: Denies neck pain and Denies numbness Integumentary/Breasts Skin/Breast: Denies pruritus, Denies erythema, Denies rash and Denies wounds Neurologic Neurologic: Denies behavioral changes, Reports confusion, Reports dizziness, Denies frequent falls, Denies loss of vision, Denies numbness and Denies weakness Psychiatric Psychiatric: Denies anxiety, Denies behavioral changes, Reports confusion, Denies depression, Denies homicidal ideation and Denies suicidal ideation Endocrine Endocrine: Denies fatigue, Denies flushing and Denies palpitations Hematologic/Lymphatic Hematologic/Lymphatic: Denies easy bruising Allergic/Immunologic Allergic/Immunologic: Denies urticaria, Denies throat swelling and Denies wheezing Patient History <Miles Stout DO - Last Filed: 01/19/20 17:54> Medical History (Updated 01/19/20 @ 11:28 by Erinn Betancourt DO) DVT (deep venous thrombosis) Migraines Surgical History No history of previous surgery S/P ACL repair Social History household members: spouse and children Smoking Status: Never smoker alcohol intake: never Smoking Status: Never smoker alcohol intake frequency: holidays/special occasions only Substance Use Type: does not use Exam <Miles Stout DO - Last Filed: 01/19/20 17:54> Narrative Exam Narrative: GENERAL: [ 29] year old patient appears stated age. Well-nourished, well-developed patient, in mild distress. Presents by EMS, in C-spine precautions with collar and on a backboard HEAD: Atraumatic. Normocephalic. EYES: Pupils equal round and reactive. Extraocular motions intact. No scleral icterus. No injection or drainage. ENT: Nose without bleeding, purulent drainage. Throat without erythema, tonsillar hypertrophy or exudate. Airway patent. NECK: Trachea midline. Non tender, C-collar in place, complains of tenderness CARDIOVASCULAR: Regular rate and rhythm without murmurs, gallops, or rubs. RESPIRATORY: Clear to auscultation. Breath sounds equal bilaterally. No wheezes, rales, or rhonchi. GASTROINTESTINAL: Abdomen soft, non-tender, nondistended. EXTREMITIES: No edema or joint tenderness. BACK: Nontender without deformity or crepitance. No flank tenderness. NEURO: AOx3. GCS 15 SKIN: No rash or erythema of visible areas Initial Vital Signs Initial Vital Signs: Vital Signs Temperature 99 F 01/19/20 04:25 Pulse Rate 64 01/19/20 04:25 Respiratory Rate 17 01/19/20 04:25 Blood Pressure 126/70 01/19/20 04:25 Pulse Oximetry 100 01/19/20 04:25 <Erinn Betancourt, DO - Last Filed: 01/19/20 12:32> Initial Vital Signs Initial Vital Signs: Vital Signs Temperature 99 F 01/19/20 04:25 Pulse Rate 64 01/19/20 04:25 Respiratory Rate 17 01/19/20 04:25 Blood Pressure 126/70 01/19/20 04:25 Pulse Oximetry 100 01/19/20 04:25 Scores <Miles Stout DO - Last Filed: 01/19/20 17:54> NIH Stroke Scale Level of Conciousness: Alert, keenly responsive Ask month/age: Answers both questions correctly. Open/close eyes, close hand: Performs both tasks correctly Best gaze horizontal: Normal Visual soto: No visual loss Facial palsy: Normal symetrical movement Left arm drift: No drift for full 10 sec Right arm drift: No drift for full 10 sec Left leg drift: No drift for full 5 sec Right leg drift: No drift for full 5 sec Limb ataxia: Present in one limb Sensory on face/arms/legs: Mild to moderate sensory loss, can tell touch Best language: No aphasia, normal Dysarthria: Normal Extinction or inattention: No abnormality Total NIH Stroke scale score: 2 Course <Miles Stout DO - Last Filed: 01/19/20 17:54> Course Course Narrative: Patient signed out to Dr. Betancourt for final disposition, awaiting MRI scheduled at 10:30 a.m. Orders Ordered: Discontinued Medications Sodium Chloride (Normal Saline 0.9%) 1,000 mls @ 1,000 mls/hr IV BOLUS ONE Stop: 01/19/20 05:53 Last Infusion: 01/19/20 06:28 Dose: 0 mls/hr Documented by: Admin: 01/19/20 05:04 Dose: 1,000 mls/hr Documented by: HOLDEN Ketorolac Tromethamine (Ketorolac 60 Mg/2 Ml Vial) 15 mg IV NOW ONE Stop: 01/19/20 07:57 Last Admin: 01/19/20 08:03 Dose: 15 mg Documented by: HOLDEN Morphine Sulfate (Morphine 2 Mg/Ml Inj) 2 mg IV NOW ONE Stop: 01/19/20 11:15 Last Admin: 01/19/20 11:41 Dose: 2 mg Documented by: RENETTA Ondansetron HCl (Ondansetron 4 Mg/2 Ml Inj) 4 mg IV NOW ONE Stop: 01/19/20 04:55 Last Admin: 01/19/20 05:04 Dose: 4 mg Documented by: HOLDEN Vital Signs Vital signs: Vital Signs - 8 hr 01/19/20 10:00 01/19/20 10:53 01/19/20 11:00 Pulse Rate 64 62 63 Respiratory Rate 17 13 Blood Pressure 114/61 110/62 Pulse Oximetry 98 97 97 01/19/20 11:03 01/19/20 11:30 01/19/20 12:41 Pulse Rate 62 63 64 Respiratory Rate 15 16 13 Blood Pressure 110/62 109/61 109/61 Pulse Oximetry 98 99 <Erinn Betancourt DO - Last Filed: 01/19/20 12:32> Orders Ordered: Discontinued Medications Sodium Chloride (Normal Saline 0.9%) 1,000 mls @ 1,000 mls/hr IV BOLUS ONE Stop: 01/19/20 05:53 Last Infusion: 01/19/20 06:28 Dose: 0 mls/hr Documented by: Admin: 01/19/20 05:04 Dose: 1,000 mls/hr Documented by: HOLDEN Ketorolac Tromethamine (Ketorolac 60 Mg/2 Ml Vial) 15 mg IV NOW ONE Stop: 01/19/20 07:57 Last Admin: 01/19/20 08:03 Dose: 15 mg Documented by: HOLDEN Morphine Sulfate (Morphine 2 Mg/Ml Inj) 2 mg IV NOW ONE Stop: 01/19/20 11:15 Last Admin: 01/19/20 11:41 Dose: 2 mg Documented by: RENETTA Ondansetron HCl (Ondansetron 4 Mg/2 Ml Inj) 4 mg IV NOW ONE Stop: 01/19/20 04:55 Last Admin: 01/19/20 05:04 Dose: 4 mg Documented by: HOLDEN Vital Signs Vital signs: Vital Signs - 8 hr 01/19/20 10:00 01/19/20 10:53 01/19/20 11:00 Pulse Rate 64 62 63 Respiratory Rate 17 13 Blood Pressure 114/61 110/62 Pulse Oximetry 98 97 97 01/19/20 11:03 01/19/20 11:30 01/19/20 12:41 Pulse Rate 62 63 64 Respiratory Rate 15 16 13 Blood Pressure 110/62 109/61 109/61 Pulse Oximetry 98 99 MDM - Fall <Miles Stout DO - Last Filed: 01/19/20 17:54> Lab Data Result diagrams: 01/19/20 04:50 01/19/20 04:50 Labs: Lab Results 01/19/20 01/19/20 01/19/20 Range/Units 04:50 04:50 04:50 WBC 5.1 (4.5-11.0) X10^3/uL RBC 5.13 (4.5-5.9) X10^6/uL Hgb 16.0 (13.5-17.5) g/dL Hct 46.1 (41-53) % MCV 89.9 (80-100) fL MCH 31.2 (26-34) PG MCHC 34.7 (30-36) % RDW 12.8 (11.6-14.8) % Plt Count 231 (150-400) X10^3/uL Neut % (Auto) 56.7 (50-75) % Lymph % (Auto) 28.6 (25-40) % [place] % (Auto) 11.2 (3-14) % Eos % (Auto) 2.4 (2-4) % Baso % (Auto) 1.1 (0-2) % Neut # (Auto) 2900 (4895-6310) /uL Lymph # (Auto) 1500 (5885-2118) /uL [place] # (Auto) 600 (0-900) /uL Eos # (Auto) 100 (0-450) /uL Baso # (Auto) 100 (0-100) /uL Sodium 136 L (137-145) mmol/L Potassium 3.6 (3.4-5.1) mmol/L Chloride 105 (98-107) mmol/L Carbon Dioxide 25 (22-32) mmol/L BUN 15 (9-20) mg/dL Creatinine 0.95 (0.66-1.25) mg/dL Estimated GFR > 60.0 (>60) mL/min BUN/Creatinine Ratio 15.8 (6-22) Glucose 107 H (70-100) mg/dL Calcium 9.6 (8.4-10.2) mg/dL Magnesium 2.1 (1.6-2.3) mg/dL Total Bilirubin 1.3 (0.2-1.3) mg/dL AST 21 (17-59) IU/L ALT 18 (<50) IU/L Alkaline Phosphatase 76 (38-126) U/L Total Protein 7.8 (6.3-8.2) g/dL Albumin 4.4 (3.5-5.0) g/dL Globulin 3.4 (1.7-4.1) g/dL Albumin/Globulin Ratio 1.3 (1.0-2.8) Prolactin 18.3 H (3.7-17.9) ng/mL Urine RBC (0-5/HPF) Urine WBC (0-5/HPF) Urine Bacteria (None) Ur Culture Indicated? Micro UA Comment U Opiates 300ng/mL cut (Negative) Ur Oxycodone Screen (Negative) Urine Methadone Screen (Negative) Ur Barbiturates Screen (Negative) U Tricyclic Antidepress (Negative) Ur Phencyclidine Scrn (Negative) Ur Amphetamines Screen (Negative) U Methamphetamines Scrn (Negative) Ur MDMA Scrn (Ecstasy) (Negative) U Benzodiazepines Scrn (Negative) Urine Cocaine Screen (Negative) U Marijuana (THC) Screen (Negative) 01/19/20 01/19/20 Range/Units 07:40 07:40 WBC (4.5-11.0) X10^3/uL RBC (4.5-5.9) X10^6/uL Hgb (13.5-17.5) g/dL Hct (41-53) % MCV (80-100) fL MCH (26-34) PG MCHC (30-36) % RDW (11.6-14.8) % Plt Count (150-400) X10^3/uL Neut % (Auto) (50-75) % Lymph % (Auto) (25-40) % [place] % (Auto) (3-14) % Eos % (Auto) (2-4) % Baso % (Auto) (0-2) % Neut # (Auto) (3098-4101) /uL Lymph # (Auto) (7079-3410) /uL [place] # (Auto) (0-900) /uL Eos # (Auto) (0-450) /uL Baso # (Auto) (0-100) /uL Sodium (137-145) mmol/L Potassium (3.4-5.1) mmol/L Chloride (98-107) mmol/L Carbon Dioxide (22-32) mmol/L BUN (9-20) mg/dL Creatinine (0.66-1.25) mg/dL Estimated GFR (>60) mL/min BUN/Creatinine Ratio (6-22) Glucose (70-100) mg/dL Calcium (8.4-10.2) mg/dL Magnesium (1.6-2.3) mg/dL Total Bilirubin (0.2-1.3) mg/dL AST (17-59) IU/L ALT (<50) IU/L Alkaline Phosphatase (38-126) U/L Total Protein (6.3-8.2) g/dL Albumin (3.5-5.0) g/dL Globulin (1.7-4.1) g/dL Albumin/Globulin Ratio (1.0-2.8) Prolactin (3.7-17.9) ng/mL Urine RBC None seen (0-5/HPF) Urine WBC None seen (0-5/HPF) Urine Bacteria None seen (None) Ur Culture Indicated? Cult not indicated Micro UA Comment Microscopic normal U Opiates 300ng/mL cut Negative (Negative) Ur Oxycodone Screen Negative (Negative) Urine Methadone Screen Negative (Negative) Ur Barbiturates Screen Negative (Negative) U Tricyclic Antidepress Negative (Negative) Ur Phencyclidine Scrn Negative (Negative) Ur Amphetamines Screen Negative (Negative) U Methamphetamines Scrn Negative (Negative) Ur MDMA Scrn (Ecstasy) Negative (Negative) U Benzodiazepines Scrn Negative (Negative) Urine Cocaine Screen Negative (Negative) U Marijuana (THC) Screen Negative (Negative) Urine Dip Bedside Urine Glucose Negative Bedside Urine Bilirubin - Negative Bedside Urine Ketone +/- 5 Urine Specific [place] 1.010 Bedside Urine Occult Blood - Negative Bedside Urine pH 6.5 Bedside Urine Protein - Negative Bedside Urine Urobilinogen - Negative Bedside Urine Nitrite - Negative Bedside Urine Leukocytes - Negative Esterase <Erinn Betancourt, DO - Last Filed: 01/19/20 12:32> Lab Data Attestation: I reviewed the patient's lab results. Labs: Lab Results 01/19/20 01/19/20 01/19/20 Range/Units 04:50 04:50 04:50 WBC 5.1 (4.5-11.0) X10^3/uL RBC 5.13 (4.5-5.9) X10^6/uL Hgb 16.0 (13.5-17.5) g/dL Hct 46.1 (41-53) % MCV 89.9 (80-100) fL MCH 31.2 (26-34) PG MCHC 34.7 (30-36) % RDW 12.8 (11.6-14.8) % Plt Count 231 (150-400) X10^3/uL Neut % (Auto) 56.7 (50-75) % Lymph % (Auto) 28.6 (25-40) % [place] % (Auto) 11.2 (3-14) % Eos % (Auto) 2.4 (2-4) % Baso % (Auto) 1.1 (0-2) % Neut # (Auto) 2900 (2686-3741) /uL Lymph # (Auto) 1500 (5546-6187) /uL [place] # (Auto) 600 (0-900) /uL Eos # (Auto) 100 (0-450) /uL Baso # (Auto) 100 (0-100) /uL Sodium 136 L (137-145) mmol/L Potassium 3.6 (3.4-5.1) mmol/L Chloride 105 (98-107) mmol/L Carbon Dioxide 25 (22-32) mmol/L BUN 15 (9-20) mg/dL Creatinine 0.95 (0.66-1.25) mg/dL Estimated GFR > 60.0 (>60) mL/min BUN/Creatinine Ratio 15.8 (6-22) Glucose 107 H (70-100) mg/dL Calcium 9.6 (8.4-10.2) mg/dL Magnesium 2.1 (1.6-2.3) mg/dL Total Bilirubin 1.3 (0.2-1.3) mg/dL AST 21 (17-59) IU/L ALT 18 (<50) IU/L Alkaline Phosphatase 76 (38-126) U/L Total Protein 7.8 (6.3-8.2) g/dL Albumin 4.4 (3.5-5.0) g/dL Globulin 3.4 (1.7-4.1) g/dL Albumin/Globulin Ratio 1.3 (1.0-2.8) Prolactin 18.3 H (3.7-17.9) ng/mL Urine RBC (0-5/HPF) Urine WBC (0-5/HPF) Urine Bacteria (None) Ur Culture Indicated? Micro UA Comment U Opiates 300ng/mL cut (Negative) Ur Oxycodone Screen (Negative) Urine Methadone Screen (Negative) Ur Barbiturates Screen (Negative) U Tricyclic Antidepress (Negative) Ur Phencyclidine Scrn (Negative) Ur Amphetamines Screen (Negative) U Methamphetamines Scrn (Negative) Ur MDMA Scrn (Ecstasy) (Negative) U Benzodiazepines Scrn (Negative) Urine Cocaine Screen (Negative) U Marijuana (THC) Screen (Negative) 01/19/20 01/19/20 Range/Units 07:40 07:40 WBC (4.5-11.0) X10^3/uL RBC (4.5-5.9) X10^6/uL Hgb (13.5-17.5) g/dL Hct (41-53) % MCV (80-100) fL MCH (26-34) PG MCHC (30-36) % RDW (11.6-14.8) % Plt Count (150-400) X10^3/uL Neut % (Auto) (50-75) % Lymph % (Auto) (25-40) % [place] % (Auto) (3-14) % Eos % (Auto) (2-4) % Baso % (Auto) (0-2) % Neut # (Auto) (4575-2142) /uL Lymph # (Auto) (3912-2300) /uL [place] # (Auto) (0-900) /uL Eos # (Auto) (0-450) /uL Baso # (Auto) (0-100) /uL Sodium (137-145) mmol/L Potassium (3.4-5.1) mmol/L Chloride (98-107) mmol/L Carbon Dioxide (22-32) mmol/L BUN (9-20) mg/dL Creatinine (0.66-1.25) mg/dL Estimated GFR (>60) mL/min BUN/Creatinine Ratio (6-22) Glucose (70-100) mg/dL Calcium (8.4-10.2) mg/dL Magnesium (1.6-2.3) mg/dL Total Bilirubin (0.2-1.3) mg/dL AST (17-59) IU/L ALT (<50) IU/L Alkaline Phosphatase (38-126) U/L Total Protein (6.3-8.2) g/dL Albumin (3.5-5.0) g/dL Globulin (1.7-4.1) g/dL Albumin/Globulin Ratio (1.0-2.8) Prolactin (3.7-17.9) ng/mL Urine RBC None seen (0-5/HPF) Urine WBC None seen (0-5/HPF) Urine Bacteria None seen (None) Ur Culture Indicated? Cult not indicated Micro UA Comment Microscopic normal U Opiates 300ng/mL cut Negative (Negative) Ur Oxycodone Screen Negative (Negative) Urine Methadone Screen Negative (Negative) Ur Barbiturates Screen Negative (Negative) U Tricyclic Antidepress Negative (Negative) Ur Phencyclidine Scrn Negative (Negative) Ur Amphetamines Screen Negative (Negative) U Methamphetamines Scrn Negative (Negative) Ur MDMA Scrn (Ecstasy) Negative (Negative) U Benzodiazepines Scrn Negative (Negative) Urine Cocaine Screen Negative (Negative) U Marijuana (THC) Screen Negative (Negative) Urine Dip Bedside Urine Glucose Negative Bedside Urine Bilirubin - Negative Bedside Urine Ketone +/- 5 Urine Specific [place] 1.010 Bedside Urine Occult Blood - Negative Bedside Urine pH 6.5 Bedside Urine Protein - Negative Bedside Urine Urobilinogen - Negative Bedside Urine Nitrite - Negative Bedside Urine Leukocytes - Negative Esterase Imaging Data CT scan - head: Radiologist's Impression: PROCEDURE: CT HEAD/BRAIN WO CON INDICATIONS: Stroke vs. seizure, loss of recall, confusion TECHNIQUE: Noncontrast 4.5 mm thick angled axial sections acquired from the foramen magnum to the vertex, with coronal and sagittal reformats. For radiation dose reduction, the following was used: automated exposure control, adjustment of mA and/or kV according to patient size. COMPARISON: None. FINDINGS: Image quality: Excellent. CSF spaces: Basal cisterns are patent. No extra-axial fluid collections. Ventricles are normal in size and shape. Brain: No midline shift. No intracranial masses or hemorrhage. Nichols-white matter interface is normal. Skull and face: Calvarium and visualized facial bones are intact, without suspicious lesions. Sinuses: Visualized sinuses and mastoids are clear. IMPRESSION: No acute intracranial disease process. Dictated by: Yudelka Carreon MD, PhD on 01/19/2020 at 7:13 CT - cervical spine: Radiologist's Impression: PROCEDURE: CT CERVICAL SPINE WO CON INDICATIONS: Stroke vs. seizure, now has midline neck pain after fall TECHNIQUE: Noncontrast 3 mm thick sections acquired from the skull base to the T4 level. Sagittal and coronal reformats were then constructed. For radiation dose reduction, the following was used: automated exposure control, adjustment of mA and/or kV according to patient size. COMPARISON: None. FINDINGS: Image quality: Excellent. Bones: No fractures or dislocations. Visualized superior ribs are intact. Soft tissues: Prevertebral soft tissues are normal in thickness. No paravertebral hematomas. No apical pneumothoraces. IMPRESSION: No fracture. No acute osseous lesion. If symptoms and/or clinical suspicion for pathology persists, evaluation with MRI may be helpful for further assessment. Dictated by: Yudelka Carreon MD, PhD on 01/19/2020 at 7:32 CTA - brain/neck: Radiologist's Impression: PROCEDURE: CT ANGIO HEAD AND NECK INDICATIONS: Stroke,altered mental status , fall, right arm weakness TECHNIQUE: Pre-contrast 4.5 mm thick sections acquired from the foramen magnum to the vertex. After the administration of intravenous contrast, 1 mm thick sections acquired from the aortic arch through the [place] of [place]. Post-contrast 4.5 mm thick sections then re-acquired from the foramen magnum to the vertex. 3-dimensional uatjuph-bjvfnrxay-diuisiwuad (MIP) and/or volume rendering reformats were acquired of the central intracranial vasculature and neck separately. COMPARISON: [facility], CT, CT HEAD/BRAIN WO CON, 01/19/2020, 5:00. FINDINGS: Image quality: Excellent. BRAIN: CSF spaces: Ventricles are normal in size and shape. Basal cisterns are patent. No extra-axial fluid collections. Brain: No midline shift. No intracranial bleeds or masses. Nichols-white matter interface appears intact. Skull and face: Calvarium and facial bones appear intact, without suspicious lesions. Orbits appear normal. Sinuses: Small mucous retention cysts noted in the maxillary sinuses bilaterally. The mastoids are clear. HEAD CT ANGIOGRAPHY: Anterior circulation: Intracranial internal carotid arteries are normal in size and flow. The flow within the paired anterior cerebral arteries is normal and symmetric. The flow within the middle cerebral arteries is normal and symmetric. The anterior communicating artery is seen. No aneurysms are seen. Posterior circulation: Visualized portions of the vertebral arteries demonstrate normal caliber, and join to form a normal appearing basilar artery. Flow within the posterior cerebral arteries is normal and symmetric. No aneurysms are seen. Dural sinuses demonstrate normal postcontrast enhancement. NECK CT ANGIOGRAPHY: Carotid system: The great vessels demonstrate a conventional anatomy as they arise from the aortic arch. The origins of the common carotid arteries appear patent. The common carotid arteries demonstrate normal caliber and courses. The bifurcation regions are both widely patent. The internal carotid arteries demonstrate normal calibers and courses. Posterior circulation: The origins of the vertebral arteries both appear widely patent. The more superior extracranial portions of both vertebral arteries also demonstrate normal courses and calibers. They join to form a normal appearing basilar artery. Soft tissues: Visualized neck soft tissues demonstrate no suspicious abnormalities. Bones: No suspicious bony lesions. Visualized cervical spine appears normally aligned. IMPRESSION: 1. No acute intracranial disease process. 2. No large vessel occlusion, vascular stenosis, vascular dissection or aneurysm. Any quantitative measurements of stenosis were performed using NASCET criteria. Dictated by: Yudelka Carreon MD, PhD on 01/19/2020 at 7:35 MDM Narrative Medical decision making narrative: Patient signed out to me by Dr. Stout if seen evaluated patient myself. He still is having some mild numbness on the right side and complaining of headache. MRI in both CTs are negative. History suggest seizure however no real cause of seizure. Patient states that he has been sleeping and eating regularly. He does have a history of TBI. With his permission I spoke with the core driller helper, updated him on need for referral to Neurology. Shortly after I spoke with patient's primary care provider recommended neurology consultation. We both agree at this time hold off on antiseizure medication, unless recurrent seizure. I discussed with patient and he should not drive or operate heavy machinery of also relayed this message to his non destructive evaluation technician. Patient will have referral to Neurology and be evaluated by primary care Discharge Plan Departure Patient Disposition: Home Clinical Impression: Seizure Instructions: DI for Seizure Disorder -- Adult Activity Restrictions/Additional Instructions: DO NOT DRIVE OR OPERATE HEAVY MACHINERY AND SWELLING OR CLEARED BY NEUROLOGY *You have been diagnosed with seizure *What to do: You may require seizure medication. Please see neurology. I have spoken with her core driller helper who will help coordinate care and referral. Expect to have a headache today. Rest and hydrate *Continue to take medications as directed Tylenol 650 mg every 4-6 hours if needed for [id number] pain Ibuprofen 800 mg every 8 hours if needed for [id number] pain *Follow up with your primary care provider in 2-3 days *Return to ER if you should have recurrent seizure, weakness numbness or tingling or any new, worsening or concerning symptoms Prescriptions: No Action propranolol 10 mg Tablet 20 mg PO BID PRN (Reason: Migraine Headache) RF: 0 Referrals: [facility] [Provider Group]
--- NOTE | 2020-01-19 06:55 | DI.MRI.S_ITS ---
PROCEDURE: MR STROKE Pre- and post-contrast brain MRI, non-contrast brain MR angiogram, pre- and postcontrast neck MR angiogram INDICATIONS: confusion, dizzy, R arm ataxia and weakenss TECHNIQUE: Brain: Noncontrast axial T1 spin echo, axial T2 fast spin echo, sagittal and axial FLAIR, coronal T2 fast spin echo, axial gradient echo, axial diffusion and ADC through the brain. After the administration of contrast, axial 3D VIBE of the cranial vasculature and brain. Brain MRA: Non-contrast 3-D time of flight MR angiogram, with multiple jltlwbc-aoeyjujex-kthfqayluk (MIP) reformats performed. Neck MRA: Axial and sagittal TruFISP through the neck. Coronal dynamic MR angiogram during administration of contrast in the arterial and venous phases, with 3-dimenstional ycwqgzu-mkclpiptq-cbexxcilei (MIP) reformats constructed from subtraction images. COMPARISON: [facility], CT, CT ANGIO HEAD AND NECK, 01/19/2020, 5:00. [facility], CT, CT HEAD/BRAIN WO CON, 01/19/2020, 5:00. FINDINGS: Image quality: Excellent. BRAIN: CSF spaces: Ventricles are normal in size and shape. Basal cisterns are patent. No extra-axial fluid collections. Brain: No intracranial bleeds or mass effects. Nichols-white matter interface is normal. Diffusion weighted images show no acute ischemic insults. Brainstem appears normal. Normal intravascular flow voids are present. The dural sinuses demonstrate normal postcontrast enhancement. No abnormal intracranial enhancement. Skull and face: Calvarial marrow signal is normal. Orbits appear normal. Sinuses: Sinuses and mastoids are clear. BRAIN MR ANGIOGRAM: Anterior circulation: Intracranial internal carotid arteries are normal in size and enhancement. The flow within the paired anterior cerebral arteries is normal and symmetric. The flow within the middle cerebral arteries is normal and symmetric. The anterior communicating artery is seen. No stenoses, occlusions, or aneurysms. Posterior circulation: The visualized portions of the vertebral arteries demonstrate normal caliber, and join to form a normal appearing basilar artery. The flow within the posterior cerebral arteries is normal and symmetric. No stenoses, occlusions, or aneurysms. NECK MR ANGIOGRAM: Carotids: Great vessels demonstrate a conventional anatomy as they arise from the aortic arch. The origins of the common carotid arteries appear patent. The calibers and courses of both common carotid arteries are normal. The bifurcation regions appear normal bilaterally. The internal carotid arteries demonstrate normal course and caliber. Posterior circulation: The origins of the vertebral arteries appear patent. More superior portions of both vertebral arteries demonstrate normal course and caliber, and join to form a normal appearing basilar artery. Miscellaneous: Subclavian arteries appear patent. Pre-contrast images through the neck show no soft tissue abnormalities. IMPRESSION: BRAIN MRI: 1. No intracranial disease process. 2. No areas of acute or chronic infarction. 3. No abnormal intracranial mass or suspicious postcontrast enhancement. BRAIN MR ANGIOGRAM: Negative examination. NECK MR ANGIOGRAM: Negative examination. Dictated by: Yudelka Carreon MD, PhD on 01/19/2020 at 10:50 Approved by: Yudelka Carreon MD, PhD on 01/19/2020 at 10:55
[2020-01-19 08:00] LABS: Ur Creatinine Normal (Normal); Ur Specific Gravity Normal (Normal); Urine Tetrahydrocannabinol Negative (Negative); Urine pH Normal (Normal)
[2020-01-19 08:01] LABS: UR Morphine/Opiate cutoff 300 Negative (Negative); Urine Amphetamines Negative (Negative); Urine Barbiturates Negative (Negative); Urine Benzodiazepines Negative (Negative); Urine Cocaine Negative (Negative); Urine MDMA Negative (Negative); Urine Methadone Negative (Negative); Urine Methamphetamines Negative (Negative); Urine Oxycodone Negative (Negative); Urine Phencyclidine Negative (Negative); Urine Tricyclic Antidepressant Negative (Negative)
[2020-01-19] MEDS: KETOROLAC 60 MG/2 ML VIAL 15 MG IV (08:03)
[2020-01-19] MEDS: MORPHINE 2 MG/ML INJ IV (11:41)
[2020-01-19 13:45] LABS: Bacteria Urine None Seen; RBC Urine None Seen (0-5/HPF); WBC Urine None Seen (0-5/HPF)
[2020-01-19 13:58] LABS: Culture Indicated Urine Cult Not Indicated; Urine Comments Microscopic Normal
== END 2020-01-19 12:20 | disposition home or self-care (01) ==
PROVIDERS: Emergency Medicine; Emergency Provider Emergency Medicine
DX: R56.9 Unspecified convulsions (principal); M54.2 Cervicalgia; R41.82 Altered mental status, unspecified; R20.0 Anesthesia of skin
CPT/HCPCS: 70450; 70496; 70498; 70548; 70553; 72125; 80053; 80305; 81003; 81015; 83735; 84146; 85025; 93005; 96361; 96374; 96375; 99284; A9579; J1885; J2270; J2405; Q9967

== ENCOUNTER 2020-01-22 06:01 | Emergency (ER) | payer OTHER, SELFPAY ==
[2020-01-22 06:15] VITALS: BP 105/75; PULSE 71; RESP 16; TEMP 36.8; O2SAT 96
[2020-01-22] MEDS: SODIUM CHLORIDE 0.9% 1,000 ML 1000 ML IV (06:30)
[2020-01-22 06:38] LABS: Add Manual Diff / Slide Review NO; Basophils Absolute Auto 0 /uL (0-100); Eosinophils Absolute Auto 200 /uL (0-450); Eosinophils Percent Auto 4.5 % (2-4); Hematocrit 47.4 % (41-53); Hemoglobin 16.2 g/dL (13.5-17.5); Lymphocytes Absolute Auto 1400 /uL (1100-4500); Lymphocytes Percent Auto 26.7 % (25-40); Mean Corpuscular HGB Conc 34.1 % (30-36); Mean Corpuscular Hemoglobin 30.8 PG (26-34); Mean Corpuscular Volume 90.3 fL (80-100); Monocytes Absolute Auto 500 /uL (0-900); Monocytes Percent Auto 10.2 % (3-14); Neutrophils Absolute Auto 2900 /uL (1500-7000); Neutrophils Percent Auto 57.6 % (50-75); Platelet Count 223 X10^3/uL (150-400); Red Blood Cell Count 5.25 X10^6/uL (4.5-5.9); White Blood Cell Count 5.1 X10^3/uL (4.5-11.0)
[2020-01-22 06:40] LABS: BUN Creatinine Ratio 17.6 (6-22); Blood Urea Nitrogen 15 mg/dL (9-20); Calcium 9.4 mg/dL (8.4-10.2); Carbon Dioxide 28 mmol/L (22-32); Chloride 107 mmol/L (98-107); Estimated Glomerular Filt Rate > 60.0 mL/min (>60); Glucose 107 mg/dL (70-100); HEMOLYSIS 15 (0-50); Potassium 4.1 mmol/L (3.4-5.1); Sodium 138 mmol/L (137-145)
--- NOTE | 2020-01-22 07:24 | ED_ITS ---
HPI - General Adult General Chief complaint: Syncope Stated complaint: Still not feeling good from wednesday, collapsed Time Seen by Provider: 01/22/20 06:09 Source: patient and family Mode of arrival: Ambulatory Limitations: no limitations History of Present Illness HPI narrative: 29-year-old male who was seen here in the emergency department approximately 2 days ago and had a fairly extensive workup to to include a CT scan of the head, CTA of the head neck and also an MRI of the brain. All which were unremarkable. Patient was discharged home with instructions to follow-up with his clinical medical assistant on the [facility] base to discuss referral to see Neurology. He returns to the emergency department today with his stating that since he was seen here in the emergency department they think that he has been having sleep walking episodes. They also the at that he was very dizzy today when he stood up and collapsed. There was no loss of consciousness with this. Overall has not been feeling well since the initial event. Related Data Home Medications Medication Instructions Recorded Confirmed propranolol 20 mg PO BID PRN 08/06/17 03/05/18 Allergies Allergy/AdvReac Type Severity Reaction Status Date / Time caffeine Allergy Unknown Hives Verified 03/05/18 08:36 Review of Systems Constitutional Constitutional: Reports fatigue, Denies headache(s), Reports lethargy and Reports malaise Eyes Eyes: Denies change in vision ENT Ears, Nose, Mouth, and Throat: Reports dizziness and Denies headache(s) Cardiovascular Cardiovascular: Denies chest pain, Reports syncope and Denies dyspnea Respiratory Respiratory: Denies dyspnea Gastrointestinal Gastrointestinal: Denies abdominal pain, Denies nausea and Denies vomiting Musculoskeletal Musculoskeletal: Denies arthralgias and Denies myalgias Integumentary/Breasts Skin/Breast: Denies rash Neurologic Neurologic: Reports dizziness, Reports syncope and Denies headache(s) Comments: Potential sleep walking Endocrine Endocrine: Reports fatigue Hematologic/Lymphatic Hematologic/Lymphatic: Denies easy bleeding and Denies easy bruising Allergic/Immunologic Allergic/Immunologic: Denies urticaria Patient History Medical History DVT (deep venous thrombosis) Migraines Surgical History No history of previous surgery S/P ACL repair Social History household members: spouse and children Smoking Status: Never smoker alcohol intake: never Smoking Status: Never smoker alcohol intake frequency: holidays/special occasions only Substance Use Type: does not use Exam Initial Vital Signs Initial Vital Signs: Vital Signs Temperature 98.3 F 01/22/20 06:15 Pulse Rate 71 01/22/20 06:15 Respiratory Rate 16 01/22/20 06:15 Blood Pressure 105/75 01/22/20 06:15 Pulse Oximetry 96 01/22/20 06:15 Const General: cooperative, healthy appearing, comfortable, well developed and well groomed Limitations: mental status not altered HENMT Head: normal to inspection and normocephalic Resp Effort & Inspection: normal respiratory effort Cardio Rate: regular rate Skin Rashes: no rashes Neuro General: patient alert, patient awake and patient oriented x3 Cranial Nerves: CN's II-XI intact bilaterally Cognition: normal cognition Speech: speech normal Gait: normal gait Extrem General: normal to inspection Psych Appearance: grossly normal and well kempt Scores GCS [place] coma scale eye opening: Spontaneous [place] coma scale verbal response: Orientated [place] coma scale motor response: Obey commands [place] coma scale total score: 15 Course Orders Ordered: ED Orders 01/22/20 06:25 Basic Metabolic Panel Stat Complete Blood Count AUTO DIFF Stat Discontinued Medications Sodium Chloride (Normal Saline 0.9%) 1,000 mls @ 1,000 mls/hr IV BOLUS ONE Stop: 01/22/20 07:08 Last Admin: 01/22/20 06:30 Dose: 1,000 mls/hr Documented by: OLGA LIDIA Vital Signs Vital signs: Vital Signs - 8 hr 01/22/20 06:15 Temperature 98.3 F Pulse Rate 71 Respiratory Rate 16 Blood Pressure 105/75 Pulse Oximetry 96 Medical Decision Making Medical Records Medical records reviewed: Yes I reviewed the patient's medical records. Lab Data Lab results reviewed: Yes I reviewed the patient's lab results. Result diagrams: 01/22/20 06:25 01/22/20 06:25 Labs: Lab Results 01/22/20 01/22/20 Range/Units 06:25 06:25 WBC 5.1 (4.5-11.0) X10^3/uL RBC 5.25 (4.5-5.9) X10^6/uL Hgb 16.2 (13.5-17.5) g/dL Hct 47.4 (41-53) % MCV 90.3 (80-100) fL MCH 30.8 (26-34) PG MCHC 34.1 (30-36) % RDW 13.0 (11.6-14.8) % Plt Count 223 (150-400) X10^3/uL Neut % (Auto) 57.6 (50-75) % Lymph % (Auto) 26.7 (25-40) % [place] % (Auto) 10.2 (3-14) % Eos % (Auto) 4.5 H (2-4) % Baso % (Auto) 1.0 (0-2) % Neut # (Auto) 2900 (7578-0395) /uL Lymph # (Auto) 1400 (7642-5548) /uL [place] # (Auto) 500 (0-900) /uL Eos # (Auto) 200 (0-450) /uL Baso # (Auto) 0 (0-100) /uL Sodium 138 (137-145) mmol/L Potassium 4.1 (3.4-5.1) mmol/L Chloride 107 (98-107) mmol/L Carbon Dioxide 28 (22-32) mmol/L BUN 15 (9-20) mg/dL Creatinine 0.85 (0.66-1.25) mg/dL Estimated GFR > 60.0 (>60) mL/min BUN/Creatinine Ratio 17.6 (6-22) Glucose 107 H (70-100) mg/dL Calcium 9.4 (8.4-10.2) mg/dL [facility] Narrative Medical decision making narrative: Patient is ambulating without problems here in the ER. Had a very extensive workup just a couple days ago that is unremarkable. He has a follow-up with his medical department later today to dis cuss referral to see Neurology. Had a discussion with him and his . Again reiterated that he cannot drive until he is cleared by Neurology or his primary provider. We did discuss potentially starting him on seizure medication today however he decided to wait to talk with his primary provider. I feel we can hold on further workup for now as I feel that the next step in this would be evaluation by Neurology. Do not feel the patient needs admitted to the hospital. Patient and his expressed understanding agreement. Discharge Plan Departure Patient Disposition: Home Clinical Impression: Dizziness Instructions: DI for Dizziness-Nonvertigo Activity Restrictions/Additional Instructions: I recommend that you keep your appointment with your flight surgeon later today. No driving into your cleared by your flight surgeon or a neurologist. I do recommend a referral to see a neurologist. You can also discuss starting anti seizure medicine with you flank doctor. Return to the emergency department for any new symptoms. Prescriptions: No Action propranolol 10 mg Tablet 20 mg PO BID PRN (Reason: Migraine Headache) RF: 0
[2020-01-22 08:05] VITALS: BP 115/65; PULSE 65; RESP 16; O2SAT 100
--- NOTE | 2020-01-29 17:14 | PC.NURSE ---
Late entry: IV NS infused 0730 hours.
== END 2020-01-22 08:10 | disposition home or self-care (01) ==
PROVIDERS: Emergency Medicine; Emergency Provider Emergency Medicine
DX: R42 Dizziness and giddiness (principal)
CPT/HCPCS: 36415; 80048; 85025; 96360; 99281